=== PATIENT | female | born 1940 | race Caucasian/White ===

== ENCOUNTER 2017-05-04 18:38 | Emergency (ER) | payer OTHER, MEDICARE ==
[2017-05-04 18:52] VITALS: BP 138/88; PULSE 68; TEMP 97.8; BMI 26.9
--- NOTE | 2017-05-04 19:07 | PDOC ---
History of Present Illness <Lan Villareal - Last Filed: 05/04/17 19:07> - History of Present Illness Initial Comments: 05/04/17 19:13 The patient is a 76 year old female, with a significant past medical history of hypertension, who presents to the emergency department with persistent pain to a cat bite sustained to her left hand about 1.5 weeks ago. The patient states the cat is her pet and as she was getting the cat off from her lap, the cat bit her left hand. She denies any swelling or increased redness to the surrounding area of the bite, however, reports the pain has not subsided. She denies chest pain, shortness of breath, headache and dizziness. She denies fever, chills, nausea, vomit, diarrhea and constipation. She denies dysuria, frequency, urgency and hematuria. Allergies: NKDA <Nichol Buckley - Last Filed: 05/04/17 19:14> - General Chief Complaint: Bite Stated Complaint: LEFT HAND CAT BITE A FEW DAYSA GO Time Seen by Provider: 05/04/17 19:05 Past History - Past Medical History Anemia: No Asthma: Yes Cancer: No Cardiac Disorders: No CVA: No COPD: No CHF: No DVT: No Dementia: No Diabetes: No GI Disorders: Yes (GERD) Disorders: No HTN: No Hypercholesterolemia: No Liver Disease: No Seizures: No Thyroid Disease: Yes (thyroid nodules) - Surgical History Abdominal Surgery: No Appendectomy: No Cardiac Surgery: No Cholecystectomy: No Lung Surgery: No Neurologic Surgery: No Orthopedic Surgery: No - Immunization History Immunization Up to Date: Yes - Suicide/Smoking/Psychosocial Hx Smoking History: Former smoker Have you smoked in the past 12 months: No Number of Cigarettes Smoked Daily: 0 If you are a former smoker, when did you quit?: 1983 Information on smoking cessation initiated: No Hx Alcohol Use: No Drug/Substance Use Hx: No Substance Use Type: Alcohol Hx Substance Use Treatment: No <Lan Villareal - Last Filed: 05/04/17 19:07> <Nichol Buckley - Last Filed: 05/04/17 19:14> - Past Medical History Allergies/Adverse Reactions: Allergies Allergy/AdvReac Type Severity Reaction Status Date / Time pantoprazole sodium AdvReac Severe Abominal Verified 05/04/17 18:40 [From Protonix] Pain Home Medications: Ambulatory Orders Albuterol Sulfate Inhaler - [Ventolin HFA Inhaler -] 1 - 2 inh PO DAILY PRN Famotidine [Pepcid] 10 mg PO DAILY tablet 12/27/16 Review of Systems - Review of Systems Able to Perform ROS?: Yes Comments:: 05/04/17 19:13 CONSTITUTIONAL: Absent: fever, chills, diaphoresis, generalized weakness, malaise, loss of appetite HEENT: Absent: rhinorrhea, nasal congestion, throat pain, throat swelling, difficulty swallowing, mouth swelling, ear pain, eye pain, visual Changes CARDIOVASCULAR: Absent: chest pain, syncope, palpitations, irregular heart rate, lightheadedness , peripheral edema RESPIRATORY: Absent: cough, shortness of breath, dyspnea with exertion, orthopnea, wheezing, stridor, hemoptysis GASTROINTESTINAL: Absent: abdominal pain, abdominal distension, nausea, vomiting, diarrhea, constipation, melena, hematochezia GENITOURINARY: Absent: dysuria, frequency, urgency, hesitancy, hematuria, flank pain, genital pain MUSCULOSKELETAL: Absent: myalgia, arthralgia, joint swelling SKIN: (+) cat bite to left hand. Absent: rash, itching, pallor HEMATOLOGIC/IMMUNOLOGIC: Absent: easy bleeding, easy bruising, lymphadenopathy, frequent infections ENDOCRINE: Absent: unexplained weight gain, unexplained weight loss, heat intolerance, cold intolerance NEUROLOGIC: Absent: headache, focal weakness or paresthesia, dizziness, unsteady gait, seizure, mental status changes, bladder or bowel incontinence PSYCHIATRIC: Absent: anxiety, depression, suicidal or homicidal ideation, hallucinations <Nichol Buckley - Last Filed: 05/04/17 19:14> *Physical Exam - Vital Signs Last Vital Signs Temp Pulse Resp BP Pulse Ox 97.8 F 68 18 138/88 94 L 05/04/17 18:40 05/04/17 18:40 05/04/17 18:40 05/04/17 18:40 05/04/17 18:40 <Lan Villareal - Last Filed: 05/04/17 19:07> - Vital Signs Last Vital Signs Temp Pulse Resp BP Pulse Ox 97.8 F 68 18 138/88 94 L 05/04/17 18:40 05/04/17 18:40 05/04/17 18:40 05/04/17 18:40 05/04/17 18:40 - Physical Exam Comments: 05/04/17 19:14 GENERAL: Well developed, well nourished. Awake and alert. No acute distress. HEENT: Normocephalic, atraumatic. PERRLA, EOMI. No conjunctival pallor. Sclera are non- icteric. Moist mucous membranes. Oropharynx is clear. NECK: Supple. Full ROM. No JVD. Carotid pulses 2+ and symmetric, without bruits. No thyromegaly. No lymphadenopathy. CARDIOVASCULAR: Regular rate and rhythm. No murmurs, rubs, or gallops. Distal pulses are 2+ and symmetric. PULMONARY: No evidence of respiratory distress. Lungs clear to auscultation bilaterally. No wheezing, rales or rhonchi. ABDOMINAL: Soft. Non-tender. Non-distended. No rebound or guarding. No organomegaly. Normoactive bowel sounds. MUSCULOSKELETAL Normal range of motion at all joints. No bony deformities or tenderness. No CVA tenderness. EXTREMITIES: No cyanosis. No clubbing. No edema. No calf tenderness. SKIN: (+) two 1mm puncture wounds on the dorsum of the left hand just proximal to the 2nd MCPJ, They appear to be healing well. There is no erythema, swelling, induration or drainage. There is full joint motion. Sensation is preserved and capillary refill is intact. Specifically, both branches of the digital nerve show no deficit to the finger. Warm and dry. Normal capillary refill. No rashes. No jaundice. NEUROLOGICAL: Alert, awake, appropriate. Cranial nerves 2-12 intact. No motor deficits in the upper extremities and lower extremities. Normoreflexic in the upper and lower extremities. Normal speech. Gait is normal without ataxia. PSYCHIATRIC: Cooperative. Good eye contact. Appropriate mood and affect. <Nichol Buckley - Last Filed: 05/04/17 19:14> *DC/Admit/Observation/Transfer - Discharge Dispostion Admit: No <Lan Villareal - Last Filed: 05/04/17 19:07> - Attestations Scribe Attestion: 05/04/17 19:14 Documentation prepared by Nichol Buckley, acting as medical administrative for Lan Jacome MD <Nichol Buckley - Last Filed: 05/04/17 19:14> Diagnosis at time of Disposition: Cat bite involving extremity - Discharge Dispostion Disposition: HOME Condition at time of disposition: Stable - Referrals Referrals: Ag Carrillo MD [Staff Physician] - 3 days - Patient Instructions Printed Discharge Instructions: How to Care for a Domestic Animal Bite Additional Instructions: Continue warm compresses. Complete rest and elevation of the hand until pain is resolved. Recheck immediately if pain worsens, or if redness, swelling, or drainage develops. Also if movement of the hand or fingers becomes painful. He may return to the emergency room or consult a hand specialist such as Dr. Carrillo whose name and phone number supplied.
== END 2017-05-04 19:16 | disposition home or self-care (01) ==
LOC: FER 18:38
DX: S61.452A Open bite of left hand, initial encounter (principal); W55.01XA Bitten by cat, initial encounter; Y93.89 Activity, other specified; Y92.009 Unspecified place in unspecified non-institutional (private) residence as the place of occurrence of the external cause; J45.909 Unspecified asthma, uncomplicated; K21.9 Gastro-esophageal reflux disease without esophagitis; E07.9 Disorder of thyroid, unspecified; Z87.891 Personal history of nicotine dependence
CPT/HCPCS: 99282-25

== ENCOUNTER 2018-10-22 07:48 | Day surgery (SDC) | payer OTHER, MEDICARE ==
[2018-10-16 12:14] VITALS: BMI 24.5
[2018-10-22 08:16] VITALS: TEMP 98.8
[2018-10-22] MEDS ORDERED: PROPOFOL 20 ML ONE ×2 (09:44)
[2018-10-22 11:03] VITALS: PULSE 71
[2018-10-22 11:06] VITALS: BP 116/76
== END 2018-10-22 11:40 | disposition home or self-care (01) ==
LOC: FASU-ENDO 07:48
PROVIDERS: ATTEND Internal Medicine Gastroenterology
PROC: 0DJD8ZZ Inspection of Lower Intestinal Tract, Via Natural or Artificial Opening Endoscopic (ICD-10-PCS; principal; 2018-10-22 09:54)
DX: Z80.0 Family history of malignant neoplasm of digestive organs (principal); K57.30 Diverticulosis of large intestine without perforation or abscess without bleeding; R93.3 Abnormal findings on diagnostic imaging of other parts of digestive tract; K64.8 Other hemorrhoids

== ENCOUNTER → 2018-12-28 | Day surgery (SDC) | payer OTHER, MEDICARE ==
--- NOTE | 2019-01-01 20:13 | PATH ---
Cytology Non-Gynecological Report Patient Name: JUAN CARLOS FIELDS [facility]. Rec. #: [id number] /Age/Gender: 1940 (Age: 78) / F Account: [id number] Location: RADIOLOGY INTER Taken: 12/28/2018 Received: 12/28/2018 Reported: 01/01/2019 Physicians: Kunal Vidal M.D. Specimen(s) Received THYROID FNA Clinical History Left, 2.64 x 2.08 x 1.37 cm Final Diagnosis THYROID, LEFT, FINE NEEDLE ASPIRATION: SATISFACTORY FOR EVALUATION. BETHESDA CLASS II: BENIGN. CYTOLOGIC FINDINGS ARE CONSISTENT WITH A BENIGN FOLLICULAR NODULE WITH CYSTIC CHANGES. FOLLICULAR CELLS DISPERSED MACRO AND MICROFOLLICLES IN A BACKGROUND OF COLLOID AND SCATTERED MACROPHAGES PRESENT. Electronically Signed Cassandra Duffy M.D. Gross Description Received are eight direct smears, four of which are air-dried and Diff-Quik stained, and four of which are alcohol fixed and Pap stained. Also received is 20 ml of bloody formalin from which one cellblock is prepared.
== END | disposition home or self-care (01) ==
LOC: JRADIR 09:41
PROVIDERS: ATTEND Internal Medicine
PROC: 0G9G3ZX Drainage of Left Thyroid Gland Lobe, Percutaneous Approach, Diagnostic (ICD-10-PCS; principal; 2018-12-28)
DX: E04.1 Nontoxic single thyroid nodule (principal)
CPT/HCPCS: 76942; 88173; 88305-TC

== ENCOUNTER 2020-05-21 16:29 | Emergency (ER) | payer OTHER, MEDICARE | END 2020-05-21 18:23 | disposition home or self-care (01) | LOC: JVIRT 16:29 | DX: Z03.818 Encounter for observation for suspected exposure to other biological agents ruled out (principal) | CPT/HCPCS: C9803; G2012-GT; U0003 ==

== ENCOUNTER 2020-07-05 13:35 | Emergency (ER) | payer OTHER, MEDICARE | END 2020-07-05 15:31 | disposition home or self-care (01) | LOC: JVIRT 13:35 | DX: Z20.822 Contact with and (suspected) exposure to COVID-19 (principal) | CPT/HCPCS: C9803; G2012-GT; U0003 ==

== ENCOUNTER 2021-07-13 09:57 | Inpatient (IN) | payer OTHER, MEDICARE ==
[2021-07-13] MEDS ORDERED: SODIUM CHLORIDE 0.9% 1000 ML INFUS.BAG IV ONE (10:25)
[2021-07-13] MEDS ORDERED: ACETAMINOPHEN 1000 MG/100 ML BAG IVPB ONE (10:25)
[2021-07-13] MEDS ORDERED: ONDANSETRON 4 MG/2 ML VIAL IVPUSH PRN ×2 (10:25→18:00)
[2021-07-13] MEDS ORDERED: FAMOTIDINE 20 MG/50 ML IVPB 20 MG/50 ML MG IVPB ONE ×2 (10:25→10:35)
[2021-07-13] MEDS ORDERED: ACETAMINOPHEN INJECTION 100 ML IVPB ONE (10:35)
[2021-07-13] MEDS ORDERED: ONDANSETRON 4 MG/2 ML VIAL ONE (10:35)
[2021-07-13 11:28] LABS: ALBUMIN 3.8 g/dl (3.4-5.0); CALCIUM 9.2 mg/dl (8.5-10); CREATININE 0.9 mg/dl (0.55-1.3); TOT PROT 6.7 g/dl (6.4-8.2)
[2021-07-13 12:41] LABS: BASO % 0.1 % (0-2.0); HEMATOCRIT 39.9 % (32.4-45.2); HEMOGLOBIN 12.7 GM/dL (10.7-15.3); LYMPH % 3.5 % (8-40); MCH 29.2 pg (25.7-33.7); MCHC 31.9 g/dl (32.0-36.0); MEAN CELL VOLUME 91.5 fl (80-96); MEAN PLT VOLUME 8.8 fl (7.5-11.1); MONO % 5.4 % (3.8-10.2); PLATELET COUNT 221 10^3/uL (134-434); RBC 4.36 M/mm3 (3.60-5.2); RDW 14.1 % (11.6-15.6); WHITE BLOOD COUNT 20.7 K/mm3 (4.0-10.0)
[2021-07-13 13:20] LABS: ANISOCYTOSIS 0; HELMET CELLS 0; HOWELL-JOLLY BODIES 0; MACROCYTOSIS 0; OVALOCYTE 0; PLATELET ESTIMATE NORMAL; ROULEAU 0; SICKELED CELLS 0; TARGET CELLS 0; TEAR DROP CELLS 0; TOXIC GRANULATION 0
[2021-07-13] MEDS ORDERED: PIPERACILLIN/TAZOBACTAM 3.375 GM VIAL IVPB ONE (14:39)
[2021-07-13] MEDS: PIPERACILLIN/TAZOB 3.375 GM 3.375 GM in DEXTROSE 5%-WATER - 50 ML IVPB ONE (14:44)
[2021-07-13 15:14] VITALS: BMI 27.3
[2021-07-13] MEDS ORDERED: ACETAMINOPHEN 325 MG TABLET (FP) PO PRN ×2 (18:00→18:07)
[2021-07-13] MEDS ORDERED: SODIUM CHLORIDE 1,000 ML IV SCH (18:15)
[2021-07-13] MEDS: BUDESONIDE/FORMETEROL FUMARATE 160/4.5 mcg INHALER IH SCH (21:17)
[2021-07-13 23:06] LABS: EPITHELIAL CELLS FEW /hpf
[2021-07-14] MEDS: PIPERACILLIN/TAZOB 3.375 GM 3.375 GM in DEXTROSE 5%-WATER - 50 ML IVPB ONE (02:20)
[2021-07-14] MEDS ORDERED: PIPERACILLIN/TAZOBACTAM 2.25 GM VIAL IVPB ONE ×2 (03:09→09:27)
[2021-07-14] MEDS ORDERED: DEXTROSE 5%-WATER - 50 ML IVPB ONE ×3 (03:09→18:20)
[2021-07-14 08:33] LABS: ALBUMIN 3.2 g/dl (3.4-5.0); CALCIUM 8.4 mg/dl (8.5-10); CREATININE 0.8 mg/dl (0.55-1.3)
[2021-07-14 09:28] LABS: BASO % 0.3 % (0-2.0); EOS % 0.4 % (0-4.5); HEMATOCRIT 36.2 % (32.4-45.2); HEMOGLOBIN 11.7 GM/dL (10.7-15.3); LYMPH % 8.7 % (8-40); MCH 29.8 pg (25.7-33.7); MCHC 32.4 g/dl (32.0-36.0); MEAN CELL VOLUME 91.8 fl (80-96); MEAN PLT VOLUME 8.7 fl (7.5-11.1); MONO % 6.6 % (3.8-10.2); PLATELET COUNT 188 10^3/uL (134-434); RBC 3.94 M/mm3 (3.60-5.2); RDW 14.2 % (11.6-15.6); WHITE BLOOD COUNT 10.7 K/mm3 (4.0-10.0)
[2021-07-14] MEDS: PIPERACILLIN/TAZOB 2.25 GM 2.25 GM in DEXTROSE 5%-WATER - 50 ML IVPB SCH ×2 (09:58→18:21)
[2021-07-14] MEDS: FAMOTIDINE 20 MG TABLET PO SCH (09:59)
[2021-07-14] MEDS: PARoxetine HCL 20 MG TABLET PO SCH (09:59)
[2021-07-14] MEDS: BUDESONIDE/FORMETEROL FUMARATE 160/4.5 mcg INHALER IH SCH ×2 (10:00→21:15)
[2021-07-14] MEDS ORDERED: PIPERACILLIN/TAZOBACTAM 3.375 GM VIAL IVPB ONE (18:20)
[2021-07-14] MEDS: PIPERACILLIN/TAZOB 3.375 GM 3.375 GM in DEXTROSE 5%-WATER - 50 ML IVPB SCH (18:23)
[2021-07-15] MEDS ORDERED: PIPERACILLIN/TAZOBACTAM 3.375 GM VIAL IVPB ONE ×3 (01:12→17:08)
[2021-07-15] MEDS ORDERED: DEXTROSE 5%-WATER - 50 ML IVPB ONE ×3 (01:12→17:09)
[2021-07-15] MEDS: PIPERACILLIN/TAZOB 3.375 GM 3.375 GM in DEXTROSE 5%-WATER - 50 ML IVPB SCH ×3 (01:45→17:18)
[2021-07-15 08:16] LABS: ALBUMIN 3.3 g/dl (3.4-5.0); BILIRUBIN,TOTAL 0.8 mg/dl (0.2-1); CALCIUM 8.6 mg/dl (8.5-10); CREATININE 0.7 mg/dl (0.55-1.3); TOT PROT 6.1 g/dl (6.4-8.2)
[2021-07-15 08:37] LABS: ERYTHROCYTE SEDIMENTATION RATE 23 mm/hr (0-30)
[2021-07-15 08:44] LABS: BASO % 0.4 % (0-2.0); EOS % 1.8 % (0-4.5); HEMATOCRIT 38.2 % (32.4-45.2); HEMOGLOBIN 12.5 GM/dL (10.7-15.3); LYMPH % 15.7 % (8-40); MCH 29.9 pg (25.7-33.7); MCHC 32.7 g/dl (32.0-36.0); MEAN CELL VOLUME 91.6 fl (80-96); MEAN PLT VOLUME 8.6 fl (7.5-11.1); MONO % 9.3 % (3.8-10.2); NEUT % 72.8 % (42.8-82.8); PLATELET COUNT 189 10^3/uL (134-434); RBC 4.18 M/mm3 (3.60-5.2)
[2021-07-15] MEDS: FAMOTIDINE 20 MG TABLET PO SCH (09:19)
[2021-07-15] MEDS: PARoxetine HCL 20 MG TABLET PO SCH (09:19)
[2021-07-15] MEDS: amLODIPine BESYLATE 5 MG TABLET (FP) PO SCH (09:22)
[2021-07-15] MEDS: BUDESONIDE/FORMETEROL FUMARATE 160/4.5 mcg INHALER IH SCH ×2 (09:27→21:04)
[2021-07-16] MEDS ORDERED: PIPERACILLIN/TAZOBACTAM 3.375 GM VIAL IVPB ONE ×2 (00:34→10:04)
[2021-07-16] MEDS ORDERED: DEXTROSE 5%-WATER - 50 ML IVPB ONE ×2 (00:34→10:04)
[2021-07-16] MEDS: PIPERACILLIN/TAZOB 3.375 GM 3.375 GM in DEXTROSE 5%-WATER - 50 ML IVPB SCH ×2 (01:27→10:06)
[2021-07-16 06:32] VITALS: PULSE 71
[2021-07-16 07:58] LABS: ALBUMIN 3.5 g/dl (3.4-5.0); BILIRUBIN,TOTAL 0.7 mg/dl (0.2-1); CREATININE 0.7 mg/dl (0.55-1.3); TOT PROT 6.5 g/dl (6.4-8.2)
[2021-07-16 08:46] VITALS: BP 139/63; TEMP 98.3
[2021-07-16 09:21] LABS: BASO % 0.4 % (0-2.0); EOS % 4.5 % (0-4.5); HEMOGLOBIN 13.2 GM/dL (10.7-15.3); LYMPH % 22.4 % (8-40); MCH 30.1 pg (25.7-33.7); MCHC 33.1 g/dl (32.0-36.0); MEAN CELL VOLUME 91.2 fl (80-96); MEAN PLT VOLUME 8.5 fl (7.5-11.1); MONO % 9.7 % (3.8-10.2); PLATELET COUNT 214 10^3/uL (134-434); RBC 4.39 M/mm3 (3.60-5.2); RDW 14.3 % (11.6-15.6); WHITE BLOOD COUNT 6.7 K/mm3 (4.0-10.0)
[2021-07-16] MEDS: PARoxetine HCL 20 MG TABLET PO SCH (10:06)
[2021-07-16] MEDS: amLODIPine BESYLATE 5 MG TABLET (FP) PO SCH (10:06)
[2021-07-16] MEDS: FAMOTIDINE 20 MG TABLET PO SCH (10:06)
[2021-07-16] MEDS: BUDESONIDE/FORMETEROL FUMARATE 160/4.5 mcg INHALER IH SCH (10:07)
[2021-07-17] MEDS ORDERED: ERTAPENEM SODIUM 1 GM in SODIUM CHLORIDE 50 ML IVPB SCH (10:00)
== END 2021-07-16 12:05 | disposition home or self-care (01) | DRG 816 ==
LOC: FER 09:57 → FM/S 14:28
PROVIDERS: ADMIT Internal Medicine; ATTEND Internal Medicine
DX: D73.3 Abscess of spleen (principal); D72.829 Elevated white blood cell count, unspecified; I10 Essential (primary) hypertension; E78.5 Hyperlipidemia, unspecified; F41.9 Anxiety disorder, unspecified; E74.39 Other disorders of intestinal carbohydrate absorption; K21.9 Gastro-esophageal reflux disease without esophagitis
CPT/HCPCS: 36415; 71045-TC-FY; 74177-TC; 76705-TC; 80053; 81003; 81015; 82272; 83615; 83690; 85025; 85651; 86140; 87040; 87086; 87804; 93005; 93306-TC; 99285-25; C9803; J0131; Q9967; U0003; U0005

== ENCOUNTER → 2021-07-16 | Day surgery (SDC) | payer OTHER, MEDICARE | END | disposition home or self-care (01) | LOC: JRADIR 12:13 | PROVIDERS: ATTEND Internal Medicine | PROC: 02HV33Z Insertion of Infusion Device into Superior Vena Cava, Percutaneous Approach (ICD-10-PCS; principal; 2021-07-16) | DX: D73.3 Abscess of spleen (principal) | CPT/HCPCS: 36569; 36573; 77001-TC-FY; C1751 ==

== ENCOUNTER 2022-11-12 11:26 | Emergency (ER) | payer OTHER, MEDICARE ==
[2022-11-12 11:33] VITALS: BP 141/75; PULSE 89; RESP 18; TEMP 98.5; BMI 28.5
[2022-11-12] MEDS ORDERED: CEPHALEXIN MONOHYDRATE 500 MG CAPSULE (UD) PO ONE (11:51)
[2022-11-12] MEDS ORDERED: CEPHALEXIN MONOHYDRATE 500 MG CAPSULE (UD) ONE (11:53)
== END 2022-11-12 12:03 | disposition home or self-care (01) ==
LOC: FER 11:26
DX: R22.32 Localized swelling, mass and lump, left upper limb (principal); L03.114 Cellulitis of left upper limb
CPT/HCPCS: 99283-25

== ENCOUNTER 2023-04-19 15:06 | Emergency (ER) | payer OTHER, MEDICARE ==
[2023-04-19 15:19] VITALS: BP 128/74; PULSE 78; RESP 18; TEMP 98.6; BMI 28.1
[2023-04-19] MEDS ORDERED: DIPHTH,PERTUSS(ACELL),TET 0.5 ML DISP.SYRIN IM ONE ×2 (15:25→15:26)
[2023-04-19] MEDS ORDERED: ACETAMINOPHEN 325 MG TABLET (FP) ONE (15:25)
[2023-04-19] MEDS ORDERED: ACETAMINOPHEN 325 MG TABLET (FP) PO ONE (15:25)
== END 2023-04-19 15:33 | disposition home or self-care (01) ==
LOC: FER 15:06
PROC: 0HQGXZZ Repair Left Hand Skin, External Approach (ICD-10-PCS; principal; 2023-04-19)
PROC: 3E0234Z Introduction of Serum, Toxoid and Vaccine into Muscle, Percutaneous Approach (ICD-10-PCS; 2023-04-19)
DX: S61.412A Laceration without foreign body of left hand, initial encounter (principal); W55.03XA Scratched by cat, initial encounter; Y92.9 Unspecified place or not applicable
CPT/HCPCS: 12002-25; 90471; 90715; 99283-25

== ENCOUNTER 2023-06-21 16:53 | Inpatient (IN) | payer OTHER, MEDICARE ==
[2023-06-21 17:09] VITALS: BMI 29.7
[2023-06-21] MEDS ORDERED: ALBUTEROL SO4 2.5/IPRATROPIUM 0.5 INH SOL 3 ML VIAL.NEB. NEB ONE ×3 (17:09→18:00)
[2023-06-21] MEDS ORDERED: ACETAMINOPHEN 500 MG TABLET (FP) PO ONE (17:21)
[2023-06-21 17:30] LABS: HEMATOCRIT 34.5 % (32.4-45.2); HEMOGLOBIN 11.8 G/dL (10.7-15.3); MCH 32.1 pg (25.7-33.7); MCHC 34.1 g/dl (32.0-36.0); MEAN CELL VOLUME 94.3 fl (80-96); MEAN PLT VOLUME 7.8 fl (7.5-11.1); PLATELET COUNT 202.6 10^3/uL (134-434); RBC 3.66 10^6/uL (3.60-5.2); RDW 14.9 % (11.6-15.6); WHITE BLOOD COUNT 11.6 10^3/uL (4.0-10.8)
[2023-06-21] MEDS ORDERED: ACETAMINOPHEN 500 MG TABLET (FP) ONE (17:39)
[2023-06-21 17:47] LABS: ALBUMIN 3.7 g/dl (3.4-5.0); BILIRUBIN,TOTAL 0.7 mg/dl (0.2-1); CREATININE 0.7 mg/dl (0.6-1.3); MAGNESIUM 1.7 mg/dL (1.8-2.4); POTASSIUM 3.7 mmol/L (3.5-5.1); TOT PROT 6.1 g/dl (6.4-8.2)
[2023-06-21] MEDS ORDERED: MAGNESIUM SULF 50% (8.12 MEQ/2 ML-1 GM VIAL) IVPB ONE (17:59)
[2023-06-21] MEDS ORDERED: ALBUTEROL SULFATE 0.021% (0.63 MG/3 ML) VIAL.NEB NEB ONE (17:59)
[2023-06-21] MEDS ORDERED: MAGNESIUM 1GM/D5W - 1 GM/100 ML IVPB IVPB ONE (18:00)
[2023-06-21] MEDS ORDERED: ALBUTEROL SO4 0.083% IH SOL 2.5 MG/3 ML VIAL.NEB. NEB ONE (18:11)
[2023-06-21 18:20] LABS: PLATELET ESTIMATE ADEQUATE
[2023-06-21] MEDS ORDERED: ALBUTEROL SO4 0.083% IH SOL 2.5 MG/3 ML VIAL.NEB. NEB PRN (20:56)
[2023-06-21 21:19] LABS: THROAT:GRP A STREP NOT DETECTED (NOTDETECTED)
[2023-06-21] MEDS ORDERED: methylPREDNISolone NA SUCC 125 MG/2 ML VIAL IVPUSH ONE (21:45)
[2023-06-21] MEDS: MOMETASONE FUROATE 110 MCG/IH INHALER IH SCH (23:07)
[2023-06-21] MEDS: ACETAMINOPHEN 500 MG TABLET (FP) PO PRN (23:07)
[2023-06-21] MEDS: ALBUTEROL SO4 0.083% IH SOL 2.5 MG/3 ML VIAL.NEB. NEB PRN (23:33)
[2023-06-22] MEDS: ALBUTEROL SO4 0.083% IH SOL 2.5 MG/3 ML VIAL.NEB. NEB PRN ×3 (04:03→17:30)
[2023-06-22] MEDS: guaiFENesin/CODEINE 10 ML UNIT-DOSE CUPS PO PRN (06:39)
[2023-06-22] MEDS: methylPREDNISolone NA SUCC 125 MG/2 ML VIAL IVPUSH SCH ×2 (09:32→17:29)
[2023-06-22] MEDS: AZITHROMYCIN IVPB 500 MG/250 ML BAG IVPB SCH (09:32)
[2023-06-22] MEDS: CEFTRIAXONE 1 GM in DEXTROSE 5%-WATER - 50 ML IVPB SCH (09:32)
[2023-06-22] MEDS: PARoxetine HCL 10 MG TABLET PO SCH (09:40)
[2023-06-22] MEDS: amLODIPine BESYLATE 5 MG TABLET (FP) PO SCH (09:40)
[2023-06-22] MEDS ORDERED: METHENAMINE PO SCH (10:00)
[2023-06-22] MEDS: MOMETASONE FUROATE 110 MCG/IH INHALER IH SCH (10:08)
[2023-06-22 11:18] LABS: HEMATOCRIT 33.4 % (32.4-45.2); HEMOGLOBIN 11.1 G/dL (10.7-15.3); MCH 31.3 pg (25.7-33.7); MCHC 33.1 g/dl (32.0-36.0); MEAN CELL VOLUME 94.6 fl (80-96); MEAN PLT VOLUME 7.8 fl (7.5-11.1); PLATELET COUNT 201.8 10^3/uL (134-434); RBC 3.53 10^6/uL (3.60-5.2); RDW 14.5 % (11.6-15.6)
[2023-06-22 11:29] LABS: ALBUMIN 3.3 g/dl (3.4-5.0); BILIRUBIN,TOTAL 0.5 mg/dl (0.2-1); CALCIUM 8.6 mg/dl (8.5-10.1); CREATININE 0.6 mg/dl (0.6-1.3); POTASSIUM 4.1 mmol/L (3.5-5.1); TOT PROT 5.8 g/dl (6.4-8.2)
[2023-06-22] MEDS ORDERED: FUROSEMIDE 40 MG/4 ML INJECTABLE VIAL IVPUSH ONE (18:29)
[2023-06-22] MEDS: FAMOTIDINE 20 MG TABLET PO SCH (18:39)
[2023-06-22] MEDS: LATANOPROST 0.005% OPHTH SOLN 2.5ML BOTTLE OD SCH (21:30)
[2023-06-23] MEDS: methylPREDNISolone NA SUCC 125 MG/2 ML VIAL IVPUSH SCH ×3 (01:05→17:28)
[2023-06-23] MEDS: ALBUTEROL SO4 0.083% IH SOL 2.5 MG/3 ML VIAL.NEB. NEB PRN (07:40)
[2023-06-23 08:33] LABS: ALBUMIN 3.7 g/dl (3.4-5.0); BILIRUBIN,TOTAL 0.4 mg/dl (0.2-1); CALCIUM 9.2 mg/dl (8.5-10.1); CREATININE 0.7 mg/dl (0.6-1.3); TOT PROT 6.4 g/dl (6.4-8.2)
[2023-06-23] MEDS: amLODIPine BESYLATE 5 MG TABLET (FP) PO SCH (09:18)
[2023-06-23] MEDS: FAMOTIDINE 20 MG TABLET PO SCH (09:18)
[2023-06-23] MEDS: PARoxetine HCL 10 MG TABLET PO SCH (09:19)
[2023-06-23] MEDS: CEFTRIAXONE 1 GM in DEXTROSE 5%-WATER - 50 ML IVPB SCH (09:21)
[2023-06-23 09:30] LABS: HEMATOCRIT 35.2 % (32.4-45.2); HEMOGLOBIN 11.7 GM/dL (10.7-15.3); MCH 30.9 pg (25.7-33.7); MCHC 33.2 g/dl (32.0-36.0); MEAN CELL VOLUME 93.1 fl (80-96); MEAN PLT VOLUME 7.9 fl (7.5-11.1); PLATELET COUNT 290 10^3/uL (134-434); RBC 3.79 M/mm3 (3.60-5.2); RDW 13.7 % (11.6-15.6); WHITE BLOOD COUNT 11.5 K/mm3 (4.0-10.0)
[2023-06-23] MEDS: AZITHROMYCIN IVPB 500 MG/250 ML BAG IVPB SCH (10:23)
[2023-06-23 10:33] LABS: ANISOCYTOSIS 0; MACROCYTOSIS 0
[2023-06-23] MEDS: ACETAMINOPHEN 500 MG TABLET (FP) PO PRN (17:43)
[2023-06-23] MEDS: methylPREDNISolone NA SUCC 40 MG/1 ML VIAL IVPUSH SCH (21:28)
[2023-06-23] MEDS: LACTOBACILLUS ACIDOPHILUS 1 TABLET PO SCH (21:28)
[2023-06-23] MEDS: LATANOPROST 0.005% OPHTH SOLN 2.5ML BOTTLE OD SCH (21:28)
[2023-06-23] MEDS: guaiFENesin/CODEINE 10 ML UNIT-DOSE CUPS PO PRN (21:31)
[2023-06-24] MEDS: guaiFENesin/CODEINE 10 ML UNIT-DOSE CUPS PO PRN ×2 (04:38→17:45)
[2023-06-24] MEDS: ALBUTEROL SO4 0.083% IH SOL 2.5 MG/3 ML VIAL.NEB. NEB PRN ×3 (04:38→17:45)
[2023-06-24] MEDS: ACETAMINOPHEN 500 MG TABLET (FP) PO PRN (08:47)
[2023-06-24] MEDS: amLODIPine BESYLATE 5 MG TABLET (FP) PO SCH (10:58)
[2023-06-24] MEDS: FAMOTIDINE 20 MG TABLET PO SCH (10:58)
[2023-06-24] MEDS: LACTOBACILLUS ACIDOPHILUS 1 TABLET PO SCH ×2 (10:58→21:50)
[2023-06-24] MEDS: PARoxetine HCL 10 MG TABLET PO SCH (10:58)
[2023-06-24] MEDS: CEFTRIAXONE 1 GM in DEXTROSE 5%-WATER - 50 ML IVPB SCH (10:59)
[2023-06-24] MEDS: AZITHROMYCIN IVPB 500 MG/250 ML BAG IVPB SCH (10:59)
[2023-06-24] MEDS: methylPREDNISolone NA SUCC 40 MG/1 ML VIAL IVPUSH SCH ×2 (11:00→21:49)
[2023-06-24] MEDS: LORATADINE 10 MG TABLET PO SCH (19:30)
[2023-06-24] MEDS: PETROLATUM, WHITE 30 GM TUBE TP SCH (19:30)
[2023-06-24] MEDS: LATANOPROST 0.005% OPHTH SOLN 2.5ML BOTTLE OD SCH (21:50)
[2023-06-25] MEDS: ALBUTEROL SO4 0.083% IH SOL 2.5 MG/3 ML VIAL.NEB. NEB PRN ×3 (03:06→13:08)
[2023-06-25] MEDS: guaiFENesin/CODEINE 10 ML UNIT-DOSE CUPS PO PRN ×2 (03:12→18:54)
[2023-06-25] MEDS: amLODIPine BESYLATE 5 MG TABLET (FP) PO SCH (09:43)
[2023-06-25] MEDS: methylPREDNISolone NA SUCC 40 MG/1 ML VIAL IVPUSH SCH ×2 (09:43→21:15)
[2023-06-25] MEDS: PARoxetine HCL 10 MG TABLET PO SCH (09:43)
[2023-06-25] MEDS: LACTOBACILLUS ACIDOPHILUS 1 TABLET PO SCH ×2 (09:43→21:15)
[2023-06-25] MEDS: LORATADINE 10 MG TABLET PO SCH (09:44)
[2023-06-25] MEDS: CEFTRIAXONE 1 GM in DEXTROSE 5%-WATER - 50 ML IVPB SCH (09:44)
[2023-06-25] MEDS: AZITHROMYCIN IVPB 500 MG/250 ML BAG IVPB SCH (09:44)
[2023-06-25] MEDS: FAMOTIDINE 20 MG TABLET PO SCH (09:44)
[2023-06-25] MEDS: PETROLATUM, WHITE 30 GM TUBE TP SCH (09:45)
[2023-06-25 10:07] LABS: ALBUMIN 3.3 g/dl (3.4-5.0); BILIRUBIN,TOTAL 0.3 mg/dl (0.2-1); CALCIUM 8.9 mg/dl (8.5-10.1); CREATININE 0.6 mg/dl (0.6-1.3); POTASSIUM 4.8 mmol/L (3.5-5.1); TOT PROT 5.5 g/dl (6.4-8.2)
[2023-06-25 11:57] LABS: HEMOGLOBIN 10.9 GM/dL (10.7-15.3); MCH 30.8 pg (25.7-33.7); MEAN CELL VOLUME 93.2 fl (80-96); MEAN PLT VOLUME 7.7 fl (7.5-11.1); PLATELET COUNT 296 10^3/uL (134-434); RBC 3.55 M/mm3 (3.60-5.2); RDW 13.9 % (11.6-15.6); WHITE BLOOD COUNT 7.5 K/mm3 (4.0-10.0)
[2023-06-25 13:15] LABS: ANISOCYTOSIS 0; HELMET CELLS 0; HOWELL-JOLLY BODIES 0; MACROCYTOSIS 0; OVALOCYTE 0; ROULEAU 0; SICKELED CELLS 0; TARGET CELLS 0; TEAR DROP CELLS 0; TOXIC GRANULATION 0
[2023-06-25] MEDS: ALBUTEROL SO4 0.083% IH SOL 2.5 MG/3 ML VIAL.NEB. NEB SCH ×2 (16:03→19:49)
[2023-06-25] MEDS: ACETAMINOPHEN 500 MG TABLET (FP) PO PRN (21:15)
[2023-06-25] MEDS: LATANOPROST 0.005% OPHTH SOLN 2.5ML BOTTLE OD SCH (21:15)
[2023-06-26] MEDS: ALBUTEROL SO4 0.083% IH SOL 2.5 MG/3 ML VIAL.NEB. NEB SCH ×4 (08:01→20:12)
[2023-06-26] MEDS: LACTOBACILLUS ACIDOPHILUS 1 TABLET PO SCH ×2 (09:52→21:14)
[2023-06-26] MEDS: CEFTRIAXONE 1 GM in DEXTROSE 5%-WATER - 50 ML IVPB SCH (09:52)
[2023-06-26] MEDS: LORATADINE 10 MG TABLET PO SCH (09:52)
[2023-06-26] MEDS: PARoxetine HCL 10 MG TABLET PO SCH (09:53)
[2023-06-26] MEDS: amLODIPine BESYLATE 5 MG TABLET (FP) PO SCH (09:53)
[2023-06-26] MEDS: AZITHROMYCIN IVPB 500 MG/250 ML BAG IVPB SCH (09:53)
[2023-06-26] MEDS: FAMOTIDINE 20 MG TABLET PO SCH (09:53)
[2023-06-26] MEDS: guaiFENesin/CODEINE 10 ML UNIT-DOSE CUPS PO PRN ×2 (09:53→16:36)
[2023-06-26] MEDS: methylPREDNISolone NA SUCC 40 MG/1 ML VIAL IVPUSH SCH ×2 (09:53→21:15)
[2023-06-26] MEDS: PETROLATUM, WHITE 30 GM TUBE TP SCH (09:54)
[2023-06-26] MEDS: LATANOPROST 0.005% OPHTH SOLN 2.5ML BOTTLE OD SCH (21:15)
[2023-06-27] MEDS ORDERED: REMDESIVIR 200 MG in SODIUM CHLORIDE 250 ML IVPB ONE (02:00)
[2023-06-27] MEDS: ALBUTEROL SO4 0.083% IH SOL 2.5 MG/3 ML VIAL.NEB. NEB SCH ×5 (06:03→21:12)
[2023-06-27] MEDS: LACTOBACILLUS ACIDOPHILUS 1 TABLET PO SCH ×2 (09:53→21:13)
[2023-06-27] MEDS: FAMOTIDINE 20 MG TABLET PO SCH (09:53)
[2023-06-27] MEDS: PETROLATUM, WHITE 30 GM TUBE TP SCH (09:53)
[2023-06-27] MEDS: amLODIPine BESYLATE 5 MG TABLET (FP) PO SCH (09:53)
[2023-06-27] MEDS: PARoxetine HCL 10 MG TABLET PO SCH (09:53)
[2023-06-27] MEDS: methylPREDNISolone NA SUCC 40 MG/1 ML VIAL IVPUSH SCH ×2 (09:53→21:12)
[2023-06-27] MEDS: LORATADINE 10 MG TABLET PO SCH ×2 (09:53→10:00)
[2023-06-27] MEDS: guaiFENesin/CODEINE 10 ML UNIT-DOSE CUPS PO PRN (12:14)
[2023-06-27] MEDS: ACETAMINOPHEN 500 MG TABLET (FP) PO PRN (12:14)
[2023-06-27] MEDS: REMDESIVIR 100 MG in SODIUM CHLORIDE 250 ML IVPB SCH (21:13)
[2023-06-27] MEDS: LATANOPROST 0.005% OPHTH SOLN 2.5ML BOTTLE OD SCH (21:24)
[2023-06-27] MEDS ORDERED: TEMAZEPAM 15 MG CAPSULE PO PRN (22:00)
[2023-06-28] MEDS: guaiFENesin/CODEINE 10 ML UNIT-DOSE CUPS PO PRN ×2 (08:29→21:22)
[2023-06-28] MEDS: ALBUTEROL SO4 0.083% IH SOL 2.5 MG/3 ML VIAL.NEB. NEB SCH ×4 (08:29→21:23)
[2023-06-28] MEDS: PARoxetine HCL 10 MG TABLET PO SCH (09:03)
[2023-06-28] MEDS: methylPREDNISolone NA SUCC 40 MG/1 ML VIAL IVPUSH SCH ×3 (09:03→23:06)
[2023-06-28] MEDS: amLODIPine BESYLATE 5 MG TABLET (FP) PO SCH (09:03)
[2023-06-28] MEDS: LACTOBACILLUS ACIDOPHILUS 1 TABLET PO SCH ×2 (09:03→21:23)
[2023-06-28] MEDS: FAMOTIDINE 20 MG TABLET PO SCH (09:04)
[2023-06-28] MEDS: PETROLATUM, WHITE 30 GM TUBE TP SCH (09:04)
[2023-06-28] MEDS: LORATADINE 10 MG TABLET PO SCH (10:13)
[2023-06-28] MEDS: REMDESIVIR 100 MG in SODIUM CHLORIDE 250 ML IVPB SCH (21:22)
[2023-06-28] MEDS: LATANOPROST 0.005% OPHTH SOLN 2.5ML BOTTLE OD SCH (21:24)
[2023-06-29] MEDS: guaiFENesin/CODEINE 10 ML UNIT-DOSE CUPS PO PRN (07:37)
[2023-06-29] MEDS: ALBUTEROL SO4 0.083% IH SOL 2.5 MG/3 ML VIAL.NEB. NEB SCH ×4 (07:38→20:33)
[2023-06-29 07:57] LABS: ALBUMIN 3.4 g/dl (3.4-5.0); BILIRUBIN,TOTAL 0.4 mg/dl (0.2-1); CALCIUM 8.9 mg/dl (8.5-10.1); CREATININE 0.5 mg/dl (0.6-1.3); POTASSIUM 4.8 mmol/L (3.5-5.1); TOT PROT 5.3 g/dl (6.4-8.2)
[2023-06-29] MEDS: methylPREDNISolone NA SUCC 40 MG/1 ML VIAL IVPUSH SCH (09:15)
[2023-06-29] MEDS: LORATADINE 10 MG TABLET PO SCH (09:16)
[2023-06-29] MEDS: PETROLATUM, WHITE 30 GM TUBE TP SCH (09:16)
[2023-06-29] MEDS: PARoxetine HCL 10 MG TABLET PO SCH (09:16)
[2023-06-29] MEDS: amLODIPine BESYLATE 5 MG TABLET (FP) PO SCH (09:16)
[2023-06-29] MEDS: LACTOBACILLUS ACIDOPHILUS 1 TABLET PO SCH ×2 (09:16→21:34)
[2023-06-29] MEDS: FAMOTIDINE 20 MG TABLET PO SCH (09:16)
[2023-06-29] MEDS: REMDESIVIR 100 MG in SODIUM CHLORIDE 250 ML IVPB SCH (21:36)
[2023-06-29] MEDS: LATANOPROST 0.005% OPHTH SOLN 2.5ML BOTTLE OD SCH (22:34)
[2023-06-30] MEDS: guaiFENesin/CODEINE 10 ML UNIT-DOSE CUPS PO PRN ×3 (06:02→15:59)
[2023-06-30] MEDS: ALBUTEROL SO4 0.083% IH SOL 2.5 MG/3 ML VIAL.NEB. NEB SCH ×4 (07:47→21:02)
[2023-06-30 09:01] LABS: ALBUMIN 3.5 g/dl (3.4-5.0); BILIRUBIN,TOTAL 0.5 mg/dl (0.2-1); CREATININE 0.5 mg/dl (0.6-1.3); POTASSIUM 4.6 mmol/L (3.5-5.1); TOT PROT 5.4 g/dl (6.4-8.2)
[2023-06-30] MEDS: methylPREDNISolone NA SUCC 40 MG/1 ML VIAL IVPUSH SCH (09:07)
[2023-06-30] MEDS: FAMOTIDINE 20 MG TABLET PO SCH (09:08)
[2023-06-30] MEDS: LACTOBACILLUS ACIDOPHILUS 1 TABLET PO SCH ×2 (09:08→21:03)
[2023-06-30] MEDS: PARoxetine HCL 10 MG TABLET PO SCH (09:08)
[2023-06-30] MEDS: PETROLATUM, WHITE 30 GM TUBE TP SCH (09:08)
[2023-06-30] MEDS: amLODIPine BESYLATE 5 MG TABLET (FP) PO SCH (09:08)
[2023-06-30] MEDS: LORATADINE 10 MG TABLET PO SCH (09:08)
[2023-06-30 09:27] LABS: HEMATOCRIT 37.3 % (32.4-45.2); HEMOGLOBIN 12.2 GM/dL (10.7-15.3); MCH 30.5 pg (25.7-33.7); MCHC 32.8 g/dl (32.0-36.0); MEAN CELL VOLUME 93.2 fl (80-96); MEAN PLT VOLUME 7.5 fl (7.5-11.1); PLATELET COUNT 361 10^3/uL (134-434); RBC 4.01 M/mm3 (3.60-5.2); RDW 14.5 % (11.6-15.6); WHITE BLOOD COUNT 11.6 K/mm3 (4.0-10.0)
[2023-06-30 10:05] LABS: ANISOCYTOSIS 0; MACROCYTOSIS 0
[2023-06-30] MEDS: REMDESIVIR 100 MG in SODIUM CHLORIDE 250 ML IVPB SCH (21:03)
[2023-06-30] MEDS: LATANOPROST 0.005% OPHTH SOLN 2.5ML BOTTLE OD SCH (21:47)
[2023-07-01] MEDS: ALBUTEROL SO4 0.083% IH SOL 2.5 MG/3 ML VIAL.NEB. NEB SCH (07:40)
[2023-07-01] MEDS: amLODIPine BESYLATE 5 MG TABLET (FP) PO SCH (09:11)
[2023-07-01] MEDS: methylPREDNISolone NA SUCC 40 MG/1 ML VIAL IVPUSH SCH (09:11)
[2023-07-01] MEDS: PETROLATUM, WHITE 30 GM TUBE TP SCH (09:11)
[2023-07-01] MEDS: PARoxetine HCL 10 MG TABLET PO SCH (09:11)
[2023-07-01] MEDS: FAMOTIDINE 20 MG TABLET PO SCH (09:11)
[2023-07-01] MEDS: LACTOBACILLUS ACIDOPHILUS 1 TABLET PO SCH (09:11)
[2023-07-01] MEDS: LORATADINE 10 MG TABLET PO SCH (09:11)
[2023-07-01] MEDS: guaiFENesin/CODEINE 10 ML UNIT-DOSE CUPS PO PRN (09:11)
[2023-07-01 10:33] VITALS: PULSE 90
[2023-07-01 10:59] VITALS: BP 127/64; RESP 16; TEMP 97.9
== END 2023-07-01 13:28 | disposition home or self-care (01) | DRG 196 ==
LOC: FER 16:53 → FM/S 20:47
PROVIDERS: ADMIT Internal Medicine; ATTEND Internal Medicine
PROC: XW033E5 Introduction of Remdesivir Anti-infective into Peripheral Vein, Percutaneous Approach, New Technology Group 5 (ICD-10-PCS; principal; 2023-06-26)
DX: J84.9 Interstitial pulmonary disease, unspecified (principal); U07.1 COVID-19; C83.37 Diffuse large B-cell lymphoma, spleen; K90.9 Intestinal malabsorption, unspecified; E87.1 Hypo-osmolality and hyponatremia; I24.89 Other forms of acute ischemic heart disease; I10 Essential (primary) hypertension; J45.20 Mild intermittent asthma, uncomplicated; K21.9 Gastro-esophageal reflux disease without esophagitis; K57.90 Diverticulosis of intestine, part unspecified, without perforation or abscess without bleeding; R09.02 Hypoxemia; E11.9 Type 2 diabetes mellitus without complications
CPT/HCPCS: 0241U-QW; 36415; 71046-TC-FY; 80053; 82550; 82553; 83036; 83735; 83880; 84484; 85025; 85027; 87040; 87070; 87205; 87633; 87651; 87899; 93005; 93306-TC; 94640; 97116-GP; 97162-GP; 99285-25; J0248